=== PATIENT | female | born 1965 | race Caucasian/White ===

== ENCOUNTER 2018-01-26 12:03 | Day surgery (SDC) | payer MEDICAID ==
[2018-01-26] VITALS (10 sets, daily range): BP systolic 80–118; BP diastolic 41–72
[~2018-01-26] VITALS: Ht 154.9 cm; Wt 58.1 kg
[~2018-01-26 12:03] MED LIST: ALBU8HFA PO; ASCO1TAB13 PO; ASPI-611 PO; BUDE10.22 INH; CHOL100046 PO; FURO-150 PO; HYDR-565 PO; LOP25T PO; NITR0.4T51 SL; OMEP40CA37 PO; ONDA4TAB9 SL; POTA10TA36 PO; PRAV20TA4 PO
[2018-01-26] MEDS ORDERED: CYAN250014 PO (12:43)
[2018-01-26] MEDS ORDERED: CHOL2000 PO (12:43)
[2018-01-26] MEDS ORDERED: sod bicarbonate 150mEq in D5W 1,150 ML IV ONE (12:45)
[2018-01-26] MEDS ORDERED: diphenhydrAMINE 25mg capsule PO PRN (12:45)
[2018-01-26 13:52] LABS: PROTHROMBIN TIME 10.2 SECONDS (9.0-12.0)
[2018-01-26 14:05] LABS: BASOPHILS % (AUTO) 0.6 % (0-1); EOSINOPHILS % (AUTO) 2 % (0-6); LYMPHOCYTES % (AUTO) 38.3 % (21-51); MEAN CORPUSCULAR HEMOGLOBIN 33.7 PG (27.0-31.0); MEAN CORPUSCULAR HGB CONC 34.4 % (33.0-36.5); MEAN CORPUSCULAR VOLUME 97.9 FL (78-98); MONOCYTES % (AUTO) 6 % (2-12); NEUTROPHILS # (AUTO) 3.7 X10'3 (1.8-7.7); NEUTROPHILS % (AUTO) 53.1 % (42-75); PRE OP HEMATOCRIT 41.5 % (35.0-45.0); PRE OP HEMOGLOBIN 14.3 g/dL (12.0-16.0); PRE OP PLATELET COUNT 245 X10'3 (140-440); RED BLOOD COUNT 4.24 X10'6 (4.20-5.60); RED CELL DISTRIBUTION WIDTH 12.6 % (11.5-14.5)
[2018-01-26 14:06] LABS: ALBUMIN 3.4 G/DL (3.4-5.0); ANION GAP 10 (8-16); BLOOD UREA NITROGEN 15 MG/DL (7-18); CALCIUM 8.7 MG/DL (8.5-10.1); CHLORIDE 107 MMOL/L (99-107); CHOL/HDL RATIO 3.4 (0.00-4.99); CHOLESTEROL 198 MG/DL (0-200); CREATININE 0.88 MG/DL (0.40-0.90); EOSINOPHILS # (AUTO) 0.1 X10'3 (0-0.9); GLUCOSE 81 MG/DL (70-104); HDL CHOLESTEROL 59 MG/DL (35-60); LDL CHOLESTEROL 126 MG/DL (50-100); LYMPHOCYTES # (AUTO) 2.6 X10'3 (1.1-4.8); MAGNESIUM 2.2 MG/DL (1.5-2.4); MONOCYTES # (AUTO) 0.4 X10'3 (0-0.9); POTASSIUM 3.5 MMOL/L (3.5-5.1); SODIUM 146 MMOL/L (135-145); TOTAL CARBON DIOXIDE 28.9 MMOL/L (24-32); TRIGLYCERIDES 81 MG/DL (20-135); eGFR 68 ML/MIN
[2018-01-26] MEDS ORDERED: iohexol 350MG/ML 100ml bottle IV ONE (15:37)
[2018-01-26] MEDS ORDERED: LIDOcaine 1% (10mg/ml)w/preservative injection 20ml MDV ONE (15:38)
[2018-01-26] MEDS ORDERED: fentaNYL/PF 50MCG/1 ML 2ML syringe ONE (16:53)
[2018-01-26] MEDS ORDERED: midazolam 2 mg/2 ml injection ONE (16:53)
[2018-01-26] MEDS ORDERED: pneumococcal 23-VAL P-sac vacc 25 mcg/0.5ml vial IMVAC ONE (19:50)
[2018-01-26] MEDS ORDERED: sod bicarbonate 150mEq in D5W 1,150 ML IV SCH (21:00)
== END 2018-01-26 20:50 | disposition home or self-care (01) ==
LOC: SSTAY O 12:03
PROVIDERS: ATTEND Internal Medicine Cardiovascular Disease
DX: I25.118 Atherosclerotic heart disease of native coronary artery with other forms of angina pectoris (principal); I10 Essential (primary) hypertension; J44.9 Chronic obstructive pulmonary disease, unspecified; F41.8 Other specified anxiety disorders; Z90.2 Acquired absence of lung [part of]; Z85.038 Personal history of other malignant neoplasm of large intestine; Z92.21 Personal history of antineoplastic chemotherapy; Z95.5 Presence of coronary angioplasty implant and graft; Z79.82 Long term (current) use of aspirin; Z23 Encounter for immunization; Z79.891 Long term (current) use of opiate analgesic; Z88.1 Allergy status to other antibiotic agents; Z88.5 Allergy status to narcotic agent; Z87.891 Personal history of nicotine dependence; Z90.49 Acquired absence of other specified parts of digestive tract; Z87.442 Personal history of urinary calculi; Z85.118 Personal history of other malignant neoplasm of bronchus and lung; Z92.3 Personal history of irradiation; Z79.899 Other long term (current) drug therapy; Z98.890 Other specified postprocedural states; Z82.49 Family history of ischemic heart disease and other diseases of the circulatory system
CPT/HCPCS: 36415; 80048; 80061; 83735; 84443; 85025; 85610; 90732; 93005; 93458; 99152; 99153; A6257; C1760; C1769; C1894; J1644; J2001; J2250; J3010; J7030; Q0163; Q9967; A4620

== ENCOUNTER 2018-03-20 10:54 | Emergency (ER) | payer MEDICAID ==
[~2018-03-20] VITALS: Ht 154.9 cm; Wt 54.5 kg
[~2018-03-20 10:54] MED LIST changes: -CHOL100046 PO; +CHOL2000 PO; +CYAN250014 PO; +HYDR-4353 PO; -HYDR-565 PO; -OMEP40CA37 PO; -ONDA4TAB9 SL
[2018-03-20 11:09] VITALS: BP 111/62
[2018-03-20] MEDS ORDERED: CLIN150C2 PO (11:43)
[2018-03-20] MEDS ORDERED: CIPR7.5D2 LEFT EAR (11:43)
[2018-03-20] MEDS ORDERED: dexamethasone 4mg tablet PO ONE (11:50)
== END 2018-03-20 12:18 | disposition home or self-care (01) ==
LOC: ER 10:55
DX: H66.92 Otitis media, unspecified, left ear (principal); H60.92 Unspecified otitis externa, left ear; I25.10 Atherosclerotic heart disease of native coronary artery without angina pectoris; E78.00 Pure hypercholesterolemia, unspecified; I10 Essential (primary) hypertension; J44.9 Chronic obstructive pulmonary disease, unspecified; G89.29 Other chronic pain; Z88.1 Allergy status to other antibiotic agents; Z88.6 Allergy status to analgesic agent; Z79.82 Long term (current) use of aspirin; Z79.899 Other long term (current) drug therapy
CPT/HCPCS: 99283; J8540